=== PATIENT | female | born 2005 | race African-American/Black ===

== ENCOUNTER 2024-08-08 08:45 | Emergency (ER) | payer SELFPAY | END 2024-08-08 10:03 | disposition home or self-care (01) | LOC: FB.ED 08:45 | DX: S60.211A Contusion of right wrist, initial encounter (principal); J45.909 Unspecified asthma, uncomplicated; E66.9 Obesity, unspecified; Z68.36 Body mass index [BMI] 36.0-36.9, adult; Z86.16 Personal history of COVID-19; Z88.5 Allergy status to narcotic agent; W01.0XXA Fall on same level from slipping, tripping and stumbling without subsequent striking against object, initial encounter | CPT/HCPCS: 73110-RT; 99283 ==